=== PATIENT | male | born 1975 | race Caucasian/White ===

== ENCOUNTER 2019-07-06 16:08 | Inpatient (IN) | payer BC, MEDICARE ==
--- NOTE | 2019-07-06 16:31 | ED ---
General Adult HPI - General Chief complaint: Psychiatric Symptoms Stated complaint: pickup order Time Seen by Provider: 07/06/19 16:16 Source: patient Mode of arrival: ambulatory Limitations: no limitations - History of Present Illness Initial comments: Dictation was produced using [employer] dictation software. please excuse any grammatical, word or spelling errors. Chief Complaint: 44-year-old male past medical history of psychiatric disease presents as pickup order. History of Present Illness: Since a 44-year-old male he was brought in by enforcement. Allegedly there was a pickup order from [facility]. Patient has been having delusional thoughts. Patient is a poor historian at this time. According to EMS she's been cooperative. Patient rambles stating that he is related to multiple celebrities. The ROS documented in this emergency department record has been reviewed and confirmed by me. Those systems with pertinent positive or negative responses have been documented in the HPI. All other systems are other negative and/or noncontributory. PHYSICAL EXAM: General Impression: Alert and oriented x3, not in acute distress HEENT: Normocephalic atraumatic, extra-ocular movements intact, pupils equal and reactive to light bilaterally, mucous membranes moist. Cardiovascular: Heart regular rate and rhythm, S1&S2 audible, no murmurs, rubs or gallops Chest: Lungs clear to auscultation bilaterally, no rhonchi, no wheeze, no rales Abdomen: Bowel sounds present, abdomen soft, non-tender, non-distended, no organomegaly Musculoskeletal: Pulses present and equal in all extremities, no peripheral edema Motor: no focal deficits noted Neurological: CN II-XII grossly intact, no focal motor or sensory deficits noted Skin: Intact with no visualized rashes Psych: Tangential speech ED course: 44 yo male presents with symptoms of psychosis. Vital signs upon arrival shows blood pressure 190/114, rest of vital signs were acceptable limits. Patient's well-appearing. Patient is acutely psychotic on physical examination. EPS consult it. Patient value by EPS. He will be admitted to inpatient psychiatry. - Related Data Home Medications Medication Instructions Recorded Confirmed risperiDONE 1 mg PO HS 07/06/19 07/06/19 Allergies Allergy/AdvReac Type Severity Reaction Status Date / Time dicloxacillin Allergy Unknown Verified 07/06/19 18:23 lactase [From Dairy Aid] Allergy Unknown Verified 07/06/19 18:23 oxycodone Allergy Unknown Verified 07/06/19 18:23 Review of Systems ROS Statement: Those systems with pertinent positive or pertinent negative responses have been documented in the HPI. ROS Other: All systems not noted in ROS Statement are negative. Past Medical History Past Medical History: Diabetes Mellitus, Hyperlipidemia, Hypertension, Osteoarthritis (OA), Renal Disease Additional Past Medical History / Comment(s): Patient denies any history of [place] CVA PE DVT asthma History of Any Multi-Drug Resistant Organisms: None Reported Past Surgical History: Back Surgery Additional Past Surgical History / Comment(s): Back surgery x 2, Surgery right foot. Past Anesthesia/Blood Transfusion Reactions: No Reported Reaction Past Psychological History: Anxiety, Depression Smoking Status: Former smoker Past Alcohol Use History: None Reported, Occasional Past Drug Use History: None Reported General Exam Limitations: no limitations Course Vital Signs 07/06/19 16:10 Temperature 99.1 F Pulse Rate 93 Respiratory 18 Rate Blood Pressure 190/114 O2 Sat by Pulse 98 Oximetry Medical Decision Making - Lab Data Lab Results 07/06/19 Range/Units 20:00 Urine Opiates Screen Not Detected (NotDetected) Ur Oxycodone Screen Not Detected (NotDetected) Urine Methadone Screen Not Detected (NotDetected) Ur Propoxyphene Screen Not Detected (NotDetected) Ur Barbiturates Screen Not Detected (NotDetected) U Tricyclic Antidepress Not Detected (NotDetected) Ur Phencyclidine Scrn Not Detected (NotDetected) Ur Amphetamines Screen Not Detected (NotDetected) U Methamphetamines Scrn Not Detected (NotDetected) U Benzodiazepines Scrn Not Detected (NotDetected) Urine Cocaine Screen Not Detected (NotDetected) U Marijuana (THC) Screen Not Detected (NotDetected) Disposition Clinical Impression: Psychosis Disposition: ADMITTED IP TO THIS [facility] Condition: Fair Referrals: None,Stated [Primary Care Provider] - 1-2 days Decision Time: 21:06
[2019-07-06 20:29] LABS: Amphetamine Screen,Urine Not Detected (NotDetected); Barbiturate Screen,Urine Not Detected (NotDetected); Benzodiazepines Screen,Urine Not Detected (NotDetected); Cocaine Screen,Urine Not Detected (NotDetected); Methadone Screen, Urine Not Detected (NotDetected); Opiate Screen,Urine Not Detected (NotDetected); Oxycodone Screen, Urine Not Detected (NotDetected); Phencyclidine Screen,Urine Not Detected (NotDetected); Tricyclic Antidepressant,Urine Not Detected (NotDetected); Urn Cannabinoid Scrn Not Detected (NotDetected)
[2019-07-06] MEDS ORDERED: MAGNESIUM HYDROXIDE 2,400 MG/10 ML CUP PO PRN (21:53)
[2019-07-06] MEDS ORDERED: MAG HYDROX/AL HYDROX/SIMETH 30 ML CUP PO PRN (21:53)
[2019-07-06] MEDS ORDERED: ZIPRASIDONE 20 MG VIAL IM PRN (21:53)
[2019-07-06] MEDS ORDERED: LORazepam 1 MG TAB PO PRN (21:53)
[2019-07-06] MEDS ORDERED: LORazepam 2 MG/ML INJ IM PRN (21:55)
[2019-07-06] MEDS ORDERED: risperiDONE 1 MG TAB PO SCH (22:00)
--- NOTE | 2019-07-07 06:47 | P.PN ---
Progress Note - Text Progress Note Date: 07/07/19 patient refused to wake up for assessment he even refused to have his vital signs taken earlier please call when patient is more cooperative
[2019-07-07 10:22] LABS: Basophils % (A) 0 %; Eosinophils # (A) 0.3 k/uL (0-0.7); Eosinophils % (A) 5 %; HCT 48.2 % (39.0-53.0); Lymphocytes # (A) 1.9 k/uL (1.0-4.8); Lymphocytes % (A) 29 %; MCH 30.1 pg (25.0-35.0); MCHC 33.2 g/dL (31.0-37.0); MCV 90.5 fL (80.0-100.0); Mean Platelet Volume 6.2; Monocytes # (A) 0.5 k/uL (0-1.0); Monocytes % (A) 7 %; Neutrophils # (A) 3.8 k/uL (1.3-7.7); Neutrophils % (A) 57 %; Platelet Count 335 k/uL (150-450); RBC 5.32 m/uL (4.30-5.90); RDW 12.7 % (11.5-15.5); WBC 6.8 k/uL (3.8-10.6)
[2019-07-07 10:30] LABS: ALT 39 U/L (21-72); AST 24 U/L (17-59); African American GFR (CKD) >90 (>60 ml/min/1.73 sqM); Albumin 4.5 g/dL (3.5-5.0); Alkaline Phosphatase 67 U/L (38-126); Anion Gap 9 mmol/L; Blood Urea Nitrogen 15 mg/dL (9-20); Calcium 9.9 mg/dL (8.4-10.2); Carbon Dioxide 28 mmol/L (22-30); Chloride 104 mmol/L (98-107); Cholesterol 236 mg/dL (<200); Glucose 149 mg/dL (74-99); HDL Cholesterol 46 mg/dL (40-60); LDL Cholesterol,Calculated 160 mg/dL (0-99); Non-African American GFR(CKD) >90 (>60 ml/min/1.73 sqM); Potassium 4.6 mmol/L (3.5-5.1); Sodium 141 mmol/L (137-145); Total Bilirubin 0.8 mg/dL (0.2-1.3); Total Protein 7.3 g/dL (6.3-8.2); Triglycerides 151 mg/dL (<150)
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
[2019-07-07] MEDS: OLANZapine 5 MG TAB PO SCH (11:15)
[2019-07-07] MEDS: ACETAMINOPHEN TAB 325 MG TAB PO PRN (11:23)
[2019-07-07 22:45] LABS: Hemoglobin A1C 5.7 % (4.0-6.0)
--- NOTE | 2019-07-08 04:27 | P.MDCNMH ---
History of Present Illness H&P Date: 07/07/19 Chief Complaint: medical management 44-year-old male with no significant past medical history patient was brought into the hospital on a pickup order from [facility] Patient kept rambling with me about Medicare and denying him service. He denies any suicidal ideation. He denies any current physical or medical complaints. Denies any fevers chills chest pain trouble breathing abdominal pain nausea or vomiting Review of Systems Pertinent positives as noted in HPI. All other systems were reviewed and are negative Past Medical History Past Medical History: Diabetes Mellitus, Hyperlipidemia, Hypertension, Osteoarthritis (OA), Renal Disease Additional Past Medical History / Comment(s): Patient denies any history of [place] CVA PE DVT asthma History of Any Multi-Drug Resistant Organisms: None Reported Past Surgical History: Back Surgery Additional Past Surgical History / Comment(s): Back surgery x 2, Surgery right foot. Past Anesthesia/Blood Transfusion Reactions: No Reported Reaction Smoking Status: Current every day smoker Medications and Allergies Home Medications Medication Instructions Recorded Confirmed Type risperiDONE 1 mg PO HS 07/06/19 07/07/19 History Allergies Allergy/AdvReac Type Severity Reaction Status Date / Time dicloxacillin Allergy Unknown Verified 07/07/19 15:12 lactase [From Dairy Aid] Allergy Unknown Verified 07/07/19 15:12 oxycodone Allergy Unknown Verified 07/07/19 15:12 risperidone Allergy Anaphylaxis Verified 07/07/19 15:12 Physical Exam Vitals: Intake and Output 07/07/19 07/07/19 07/08/19 14:59 22:59 06:59 Other: Weight 97.885 kg Constitutional: No acute distress, conversant, pleasant Eyes: Anicteric sclerae, moist conjunctiva, no lid-lag Pupils equal round reactive to light ENMT: NC/AT Oropharynx clear, no erythema, exudates Neck: Supple, FROM, no masses, or JVD No carotid bruits No thyromegaly Lungs: Clear to auscultation Clear to percussion Normal respiratory effort, no accessory muscle use Cardiovascular: Heart regular in rate and rhythm, No murmurs, gallops, or rubs No peripheral edema Abdominal: Soft Nontender, no guarding, rebound or rigidity Abdomen moving with respiration Normoactive bowel sounds No hepatomegaly, No splenomegaly No palpable mass No abdominal wall hernia noted Skin: Normal temperature, tone, texture, turgor No induration No subcutaneous nodules No rash, lesions No ulcers Extremities: No digital cyanosis No clubbing Pedal pulses intact and symmetrical Radial pulses intact and symmetrical No calf tenderness Psychiatric: Alert and oriented to person, place and time flat affect fair judgement Neuro Muscles Strength 5/5 in all 4 extremities Sensation to light touch grossly present throughout Cranial nerves II-XII grossly intact No focal sensory deficits Lymphatics: no palpable cervical or supraclavicular , or inguinal lymph nodes Cranial Nerve Examination - Cranial Nerves Cranial Nerve II- Optic: Intact Cranial Nerve III- Oculomotor: Intact Cranial Nerve IV- Trochlear: Intact Cranial Nerve V- Trigeminal: Intact Cranial Nerve - Abducens: Intact Cranial Nerve VII- Facial: Intact Cranial Nerve VIII- Auditory: Intact Cranial Nerve IX- Glossopharyngeal: Intact Cranial Nerve X- Vagus: Intact Cranial Nerve XI- Accessory: Intact Cranial Nerve XII- Hypoglossal: Intact Results CBC & Chem 7: 07/07/19 08:35 07/07/19 08:35 Labs: Abnormal Lab Results - Last 24 Hours (Table) 07/07/19 Range/Units 08:35 Glucose 149 H (74-99) mg/dL Triglycerides 151 H (<150) mg/dL Cholesterol 236 H (<200) mg/dL LDL Cholesterol, Calc 160 H (0-99) mg/dL Assessment and Plan Assessment: 44-year-old male with no significant past medical history brought into the hospital upon a pickup order due to noncompliance with [facility]. Patient currently denies any medical or physical complaints. Plan: delusional thoughts Schizoaffective disorder Bipolar disorder Management per psych hyperlipidemia Recommending lifestyle modification Outpatient follow-up with PCP Low risk for DVT patient ambulatory Follow-up labs Thank you for allowing us to participate in the care of this patient. We will follow peripherally. Do not hesitate to contact us with questions. Someone can be reached from the [facility] hospitalist group at all hours of the day at [phone].
[2019-07-08] MEDS: OLANZapine 5 MG TAB PO SCH ×3 (09:11→20:06)
--- NOTE | 2019-07-08 09:15 | P.PN ---
Progress Note - Text Interval history: The patient is found in the [facility] he follows me to an interview room. He initially refused to speak with me unless I brought him all of his belongings. After a few attempts he was willing to follow me to an interview room. He states that he wants hydrotherapy immediately. He states he wants a therapeutic riding instructor hired for his disability case. He indicates that he has a felony case against him in [place] regarding a stolen rental car and he has an claims attorney for that case as well. He is aware that his blood pressure readings have been elevated but he states he does not want blood pressure medication he wants no pain medication. He complied with the Zyprexa yesterday we discussed titrating the dose and he will give that consideration. He is very concerned about being "overmedicated". Staff reported he slept 6 hours yesterday. He indicates he has been attending groups. He states he was fraudulently admitted to the hospital. He states that the person who completed the petition should lose their job and is part of the fraud. Mental status exam: The patient is alert he is initially resistant to speaking with me but eventually was agreeable. He has spontaneous ongoing speech. He demonstrates a disorganized thought process including tangential thinking and loose associations. He spontaneously describes paranoid persecutory themes. He feels that people have fraudulently admitted into the hospital he feels framed by the felony charge in [place]. He feels that we are attempting to overmedicate him. He has an irritable affect throughout the session but he is directable. He is reporting no thoughts of harming himself or others. He endorses no auditory hallucinations but he is an impaired historian. He denies having any delusions although he demonstrates paranoid and persecutory thinking. Insight and judgment are poor. He demonstrates no verbal or physical aggressiveness. He demonstrates no involuntary repetitive movements. Plan: The patient is refusing most recommendations. He does not is to have medication prescribed for his blood pressure. He refuses any psychotropic med ication other than Zyprexa. I informed him that I would be titrating the dose to 5 mg twice daily. At this point we are trying to use any antipsychotic that he is willing to take as we continue to wait for the court process. He is encouraged to continue participating in the milieu. Efforts are made to provide reality orientation when possible. Vital signs reviewed. He requires continued psychiatric hospitalization.
[2019-07-09] MEDS: OLANZapine 5 MG TAB PO SCH (08:19)
--- NOTE | 2019-07-09 11:27 | P.PN ---
Progress Note - Text Interval history: The patient is found in the hallway he follows me to an interview room. He met with his court appointed attorney general yesterday and deferred a court hearing. We discussed that that means that he will comply with treatment recommendations. We discussed that I wanted to titrate the Zyprexa further. He became agitated. He threatened to take legal action if we overdosed him. He continues to be quite disorganized in conversation he demonstrates tangential thinking loose associations. He is concerned about his insurance getting disability he makes demands for a single disability payment as well as social work finding him housing. Staff reported that he did sleep last night he has been participating in groups. It seems in a group setting he is more contained but with one-on-one interactions the thought disorganization is quite evident. Mental status exam: The patient is alert he is dressed in the same clothing he refuses to launder his clothing he states he has been showering. Eye contact is appropriate speech is fluent spontaneous he is pressured as noted he demonstrates disorganization of thought. It is difficult to redirect him. He asked questions but provides me no time to answer them. He then provides an interpretation of what my answer would be and it is not objective. Insight and judgment are poor. He is reporting no suicidal or homicidal thoughts. He demonstrates paranoid persecutory thinking. He does get demonstrative with speech and he does appear irritable he is verbally threatening in terms of legal action. He demonstrates no physical aggressiveness. Plan: We will titrate the Zyprexa 5 mg in the morning 10 mg at bedtime. There has been no improvement in his psychosis and thought disorganization at this time. We will monitor him for safety he is encouraged to participate in the milieu. He requires continued psychiatric hospitalization. If he refuses the Zyprexa the evening we will have to pursue a full hearing to obtain a court order.
[2019-07-09] MEDS ORDERED: cloNIDine HCL 0.1 MG TAB PO PRN (18:54)
[2019-07-09] MEDS ORDERED: OLANZapine 10 MG TAB PO SCH (21:00)
[2019-07-10] MEDS ORDERED: OLANZapine 5 MG TAB PO SCH (09:00)
[2019-07-10] MEDS ORDERED: OLANZapine 5 MG TAB PO ONE (10:49)
--- NOTE | 2019-07-10 10:55 | P.PN ---
Progress Note - Text Interval history: The patient is found in the hallway he follows me to an interview room. He indicates his mood is fine. He did sleep through the night. Staff report he continues to make an effort attending groups. Staff also report however was spontaneous speech the patient's thoughts are disorganized. He is noted to continue walking around with a legal pad that is filled with pages of notes and things have been highlighted. During our session he speaks nonstop and continues to demonstrate the same disorganized thought process noted in the last to progress notes. Mental status exam: The patient is alert he is dressed in different clothing he is wearing prescription sunglasses. Eye contact is appropriate speech is fluent and spontaneous he is pressured he continues to demonstrate the same thought disorganization. He demonstrates tangential thinking loose associations at times flight of ideas. Insight and judgment are poor. He demonstrates no verbal or physical aggressiveness but remains animated in speech. He reports no auditory or visual hallucinations he denies any symptoms of psychosis but continues to spontaneously describe paranoid persecutory thinking. His symptoms of psychosis would definitely impede normal psychosocial function outside of the hospital. Plan: The patient will continue on the Zyprexa we will titrate to 10 mg twice daily. He is amenable to this change. Vital signs reviewed. We will monitor him for safety he is encouraged to appropriate participate in the milieu.
[2019-07-10] MEDS: ACETAMINOPHEN TAB 325 MG TAB PO PRN (20:14)
[2019-07-10] MEDS: OLANZapine 10 MG TAB PO SCH (20:15)
[2019-07-11] MEDS: OLANZapine 10 MG TAB PO SCH ×2 (09:28→21:37)
--- NOTE | 2019-07-11 10:26 | P.PN ---
Progress Note - Text Interval history: The patient is found in his room he prefers to talk in his room today. He is seated on his bed he is surrounded by papers he has numerous pages completed front and back. He did allow me to review a few of these pages. In essence they are disorganized journals. At some points he is documenting what he is doing at the moment and then there are random topics written about. He states that he has a book he is working on the has 432 pages. He continues to worry about his insurance he asks when he will be released. He continues to have poor insight as to why he was admitted. He indicates he is complying with the Zyprexa he is reporting no side effects from it. Mental status exam: The patient is an overweight male he is dressed in his own clothing he is wearing his prescription sunglasses. Eye contact is intermittent speech is fluent and spontaneous nonpressured. He reports no suicidal or homicidal ideation intent or plan he reports no auditory or visual hallucinations or any specific delusions he does however continue to demonstrate paranoid and persecutory thinking. Thoughts are disorganized he demonstrates tangential thinking loose associations. Insight and judgment are poor. He demonstrates no verbal or physical aggressiveness he demonstrates no involuntary repetitive movements. Plan: The patient will continue on his current medication we have just recently titrated the Zyprexa. We will consider adding another mood stabilizer. Vital signs reviewed. He is encouraged to participate in the milieu. He requires continued psychiatric hospitalization.
[2019-07-11] MEDS: ACETAMINOPHEN TAB 325 MG TAB PO PRN (19:17)
[2019-07-12] MEDS: OLANZapine 10 MG TAB PO SCH ×2 (08:45→20:55)
--- NOTE | 2019-07-12 13:50 | P.PN ---
Progress Note - Text Interval history: The patient is found in the hallway he follows me to an interview room. He indicates his mood is frustrated he would like to be discharged. He did sleep last night he has been eating he's been attending some groups. We discussed that the Zyprexa does not seem to be organizing his thought process sufficiently. He becomes agitated he refuses to increase the medicine or let us augment with any other medicine. He threatens to jose he is going to get a coffee farmer etc. Mental status exam: The patient is a 44-year-old male appearing his stated age. He is dressed in his own clothing he is wearing his prescription sunglasses. Before speaking with me he went down to his room to grab his legal pad filled with notes. He reports his mood is fine he has poor insight and judgment he feels he never should've been hospitalized. He continues to describe paranoid and persecutory thinking. Thought process continues to be disorganized. He did require some verbal redirection as he was beginning to escalate. Fortunately he was able to follow that redirection. Plan: The patient has demonstrated little improvement so far we will consider titrating the Zyprexa further I did discuss wanting to add Depakote to his current regimen. He adamantly refuses either option. We will discuss this further and we may need to demand a court hearing if further medication changes are needed. Vital signs reviewed.
[2019-07-12] MEDS: ACETAMINOPHEN TAB 325 MG TAB PO PRN (17:24)
[2019-07-13] MEDS: OLANZapine 10 MG TAB PO SCH ×2 (08:39→20:11)
--- NOTE | 2019-07-13 11:25 | P.PN ---
Progress Note - Text Interval history: The patient is found in group he follows me to an interview room. Staff report that superficially he has been functioning on the unit in the sense that he has been showering, eating appropriately, and attending some groups. They indicate that he has not been verbal in groups. The patient continues to carry around his folder of written pages. He begins the session making demands and describing a variety of disorganized thoughts. He continues to convey paranoid persecutory thoughts. He accuses me of going to wherever his belongings are in reading through his personal papers. He accuses me of trying to collude with physicians in [place] to overmedicate him. He absolutely refuses to entertain the option of us titrating the Zyprexa further or adding Depakote as an augmentation strategy. Mental status exam: The patient is a shorter statured bald overweight male appearing his stated age. He is wearing prescription sunglasses. Eye contact is staring in nature. He demonstrates an irritable affect he threatens legal action. He regresses to making derogatory comments towards the end of the session. Out of anger he began hitting the table when speaking. He demonstrates no insight into his thought disorganization he demonstrates no insight into his psychosis. Judgment is subsequently impaired. He reports no thoughts of wanting to harm himself or others. He demonstrates no involuntary repetitive movements. Plan: We will continue the Zyprexa as written he is agreeable to that medication at that dose only he is not willing to have the dose titrated or any other medicine being added. He is on a deferral agreement. I attempted to discuss that he is not adhering to that agreement and we will need to request a full hearing. Vital signs reviewed. We will continue to monitor him for safety. He requires continued psychiatric hospitalization due to the acute nature of his symptoms.
[2019-07-13] MEDS: ACETAMINOPHEN TAB 325 MG TAB PO PRN (15:57)
[2019-07-14] MEDS: OLANZapine 10 MG TAB PO SCH ×2 (08:42→20:16)
--- NOTE | 2019-07-14 09:07 | P.PN ---
Progress Note - Text Interval history: The patient is found in the hallway. We spoke in the library this morning. He states that he contact his clinical molecular geneticist. He requested she come to the unit yesterday and she did not. He states he may press charges against her. He threatens to take legal action against me. He states that when he signed a deferral he should've been released immediately. When I try to explain the deferral again he becomes agitated. He refuses to discuss any medication changes. He continues to state that I'm trying to overmedicate him. Mental status exam: The patient is alert he is wearing his prescription sunglasses. He has ongoing speech he is pressured and more difficult to redirect. He has disorganization of thought. He spontaneously describes persecutory and paranoid thinking. Insight and judgment are impaired. He demonstrates no physical aggressiveness but verbally is agitated during the session. He reports no thoughts of harming himself or others. He is demonstrating no involuntary repetitive movements. The session was terminated early due to his agitation. Plan: The patient will continue on the medication as written he refuses any changes. We have requested a demand for hearing that is scheduled for tomorrow morning. Vital signs reviewed. He requires continued psychiatric hospitalization due to the acute nature. His symptoms.
[2019-07-14] MEDS: ACETAMINOPHEN TAB 325 MG TAB PO PRN (15:33)
[2019-07-15] MEDS: OLANZapine 10 MG TAB PO SCH ×2 (09:00→20:36)
--- NOTE | 2019-07-15 09:56 | P.PN ---
Progress Note - Text Interval history: The patient is found in the hallway he follows me to the library to speak. He continues to start the session by discussing his concerns regarding Medicare his hopes to be on medical disability. He reports he contacted his teacher selection specialist and she did not help him yesterday. He asked that he is able to have his own love on the mental health unit he wants a razor and makes other demands. An attempt was made again to discuss his psychotropic medication. He did have a fact sheet regarding Depakote. He made conflicting statements about the medication but ultimately refuses to use it in conjunction with Zyprexa. He refuses to comply with any increase in the Zyprexa. Efforts were made to address concerns he verbalize regarding the medications but he was not receptive. Mental status exam: The patient is alert he is dressed in his own clothing he is wearing his sunglasses, he has his folder filled with pages of written information. He continues to demonstrate a disorganized thought process. He demonstrates tangential thinking loose associations at times flight of ideas. He continues to spontaneously make paranoid and persecutory statements. He accuses previous physicians at this hospital over medicating him. Implies that it is my motive to overmedicate him. He misconstrues information provided to him. He is intrusive in conversation and has to be asked to stop talking in order to complete a statement. He demonstrates no verbal or physical aggressiveness. He demonstrates no involuntary repetitive movements. Insight and judgment are poor. Plan: The patient refuses any medication addition or titration. We have filed a demand for hearing and this is not scheduled until July 22. I will continue to try to help him understand the need for further medication change. He is encouraged to participate fully in groups. He requires continued psychiatric hospitalization. I fully expect that he would be weekly readmitted if he was discharged to a lesser level of care at this time. His thought disorganization and psychosis would significantly adversely affect his psychosocial function if he were currently treated as an outpatient. Vital signs reviewed.
[2019-07-15] MEDS: ACETAMINOPHEN TAB 325 MG TAB PO PRN (13:46)
[2019-07-16] MEDS: OLANZapine 10 MG TAB PO SCH ×2 (08:46→20:13)
--- NOTE | 2019-07-16 10:03 | P.PN ---
Progress Note - Text Interval history: The patient is found in group he follows me to an interview room. The patient shows me a sheet of paper that he is filled front and back of all medications that he has taken before. Some of which were psychotropic medications that we have previously discussed. He states that I am trying to overmedicate him. He states that there is no value in adding Depakote to Zyprexa because of the same medicine. He states that both the same as Cymbalta. An attempt was made to provide some education regarding the medications but he was not receptive. We discussed that his court date isn't until the and we should try to make a change in his medicine to improve his condition and make use of the time. He states he would consider starting the Depakote but not at the typical starting dose. He agreed to consider starting at 250 mg. The patient was agitated throughout the session. We discontinued the session as he started to make derogatory statements directed towards me. Mental status exam: The patient is alert he is dressed in the same clothing he is wearing his prescription sunglasses. He shuffles through several pages that he keeps in a folder. He is intrusive in conversation he frequently interrupts me when I'm speaking. He does not allow me to offer information regarding medications. Thought process remains disorganized he continues to convey a paranoid and persecutory thought content. Insight and judgment are poor. He does get verbally agitated he started to make derogatory statements. The session was discontinued. He demonstrated no physical aggressiveness. He reports no suicidal or homicidal thoughts. Plan: The patient will continue on the Zyprexa as written. He refuses any in creased dose. He was informed that I would be prescribing Depakote ER 250 mg at bedtime we also discussed of this dose will be too low to be considered therapeutic and it will have to be titrated should he continue with that medication. He was informed that he is a court date on the . We will monitor him for safety and encourage participation in the milieu. He remains acutely symptomatic. Vital signs reviewed.
[2019-07-16] MEDS: ACETAMINOPHEN TAB 325 MG TAB PO PRN (15:07)
[2019-07-16] MEDS ORDERED: DIVALPROEX ER 250 MG TAB.ER.24H PO SCH (21:00)
[2019-07-17] MEDS: OLANZapine 10 MG TAB PO SCH ×2 (08:36→20:58)
--- NOTE | 2019-07-17 10:12 | P.PN ---
Progress Note - Text interval history: The patient is found in group he follows me to an interview room. He states he's frustrated that he can't shave and he wants to carry around his own cross pen instead of using our pens. We reviewed his psychotropic medication. He did comply with the Depakote ER last evening. He admits there is no side effects or issues so far. We discussed the importance of titrating that medication further to get it in the therapeutic range. He remains reluctant and apprehensive. He is agreeable to having the increase it to 500 mg at bedtime. We discussed a target goal of 750 or thousand milligrams. He indicates he slept last night. He has been eating meals. He has been attending groups. Mental status exam: The patient is alert he is dressed in his own clothing hygiene grooming fair. He continues to wear his prescription sunglasses. Speech is fluent spontaneous he is verbose. He continues to demonstrate diso rganization of thought. Quickly begins talking about hydrotherapy and needing a prescription to go into the pool, he discusses concerns about his insurance and states he's going to discontinue Medicaid. He wants his disability benefits started. He continues to state that this hospital overmedicated him 3 years ago. He states I'm trying to prescribe medicines to him that do the same thing. He was calm her today and was mildly more receptive in terms of me providing explanations of his medications. Insight and judgment are still impaired. He reports no suicidal or homicidal thoughts. He can be perseverative. He demonstrated no verbal or physical aggressiveness. He demonstrated no involuntary repetitive movements. Plan: The patient will continue on the Zyprexa as written, we will titrate the Depakote to 500 mg at bedtime. He was advised that we would need to titrate this further. He is concerned about the size of the tablets so we are requesting pharmacy give him the 250 mg tablets to equal 500 mg. We discussed using the capsule version of the medication and a twice daily dosing but he prefers to continue the extended release just at bedtime. We will monitor him for safety. He is encouraged to continue participating in the milieu. Vital signs reviewed. He is scheduled to have a court hearing on the .
[2019-07-17] MEDS: ACETAMINOPHEN TAB 325 MG TAB PO PRN (15:32)
[2019-07-17] MEDS: DIVALPROEX ER 500 MG TAB.ER.24H PO SCH (20:58)
[2019-07-18] MEDS: OLANZapine 10 MG TAB PO SCH ×2 (08:26→20:39)
--- NOTE | 2019-07-18 13:48 | P.PN ---
Progress Note - Text Progress Note Date: 07/18/19 Interval history: Patient was seen wandering the hallways with sunglasses on and was agreeable to speak to securities underwriter in the office. Patient claims that he is doing well today and claims that he feels the medications are helping him. He states that he is tending to participate on the [facility] and cortical groups as best as he can. He claims that he does not understand why he needs to go back to court and why the medications need to be increased more. Patient has a poor understanding of his treatment however is agreeable to continue with current regimen. He stated that he misses his therapy dog and wants to go home. Patient states that he slept well last night and was focused on discharge during the interview. He states that he is eating well and has fair energy. At this time patient denies any suicidal or homicidal ideations intent or plan. Denies any Auditory or visual hallucinations. Patient denies any side effects from the medications and has been compliant with meds. Mental status exam: General Appearance: Patient appears to be stated age is alert, directable and attempts to cooperate. Fair hygiene and grooming. Patient has sunglasses on. Behavior: No agitated behavior. Patient is calm and directable irritable at times. Speech: Patient's speech is fluent and nonpressured. Mood/Affect: Mood is improving, affect is congruent and constricted. Suicidality/Homicidality: Patient denies having any suicidal or homicidal ideation intent or plan. Perceptions: Patient denies any auditory or visual hallucinations. Though content/process: There is no evidence of any delusional thought content and thought process is linear and goal-directed. Memory and concentration: AOX3, grossly intact for the purposes of this session Judgment and insight: Poor Assessment/Plan: Continue with current diagnosis. Patient continues to meet criteria for inpatient psychiatric admission for symptom stabilization and safety.Patient will be maintained on current psychotropic medication regimen. Monitor for medication compliance and for any psychotropic medication side effects. Will continue to monitor ongoing response to treatment. Patient will be due for probate court next week.
[2019-07-18] MEDS: ACETAMINOPHEN TAB 325 MG TAB PO PRN (15:02)
[2019-07-18] MEDS: DIVALPROEX ER 500 MG TAB.ER.24H PO SCH (20:39)
[2019-07-19] MEDS: OLANZapine 10 MG TAB PO SCH ×2 (08:40→20:19)
--- NOTE | 2019-07-19 11:34 | P.PN ---
Progress Note - Text Progress Note Date: 07/19/19 Interval history: Patient was seen wandering the hallways with sunglasses on and was agreeable to speak to insurance underwriter sales in the office. patient claims that he is taking his medications regularly and claiming that it is a increasing his appetite and finds himself hungry in the morning. He spoke about not getting the proper food that he wants in the hospital and states that "they're messing up my order to much". He claims that his mood has been gradually improving and offers no overnight complaints. He states that he slept well last night. He continues to talk about missing his dog and wanting to leave the hospital. patient spoke about going to groups and participating well. he admits to having fair energy. At this time patient denies any suicidal or homicidal ideations intent or plan. Denies any Auditory or visual hallucinations. Patient denies any side effects from the medications and has been compliant with meds. Mental status exam: General Appearance: Patient appears to be stated age is alert, directable and attempts to cooperate. Fair hygiene and grooming. Patient has sunglasses on. Behavior: No agitated behavior. Patient is calm and directable. less irritable today. Speech: Patient's speech is fluent and nonpressured. Mood/Affect: Mood is improving, affect is congruent and constricted. Suicidality/Homicidality: Patient denies having any suicidal or homicidal ideation intent or plan. Perceptions: Patient denies any auditory or visual hallucinations. Though content/process: There is no evidence of any delusional thought content and thought process is linear and goal-directed. Memory and concentration: AOX3, grossly intact for the purposes of this session Judgment and insight: Poor, mildly improving. Assessment/Plan: Continue with current diagnosis. Patient continues to meet criteria for inpatient psychiatric admission for symptom stabilization and saf ety.Patient will be maintained on current psychotropic medication regimen. Monitor for medication compliance and for any psychotropic medication side effects. Will continue to monitor ongoing response to treatment. Patient will be due for probate court next week.
[2019-07-19] MEDS: DIVALPROEX ER 500 MG TAB.ER.24H PO SCH (20:19)
[2019-07-20] MEDS: ACETAMINOPHEN TAB 325 MG TAB PO PRN (08:33)
[2019-07-20] MEDS: OLANZapine 10 MG TAB PO SCH ×2 (08:33→20:12)
--- NOTE | 2019-07-20 11:04 | P.PN ---
Progress Note - Text interval history: The patient is found in the [facility] he follows me to an interview room. He indicates his mood is okay. Spontaneously he states that a [facility] doesn't find him somewhere to live he will press charges. He continues to speak of his concerns regarding his insurance. He states he is unsure what his status is with Medicare. Staff report that he has been doing better with attending groups. He has been more calm in terms of behavior. He has been complying with the Zyprexa and now the Depakote. We discussed titrating the Depakote dose further so that it is therapeutic and he is agreeable today. Mental status exam: The patient's dressed in the same clothing hygiene is adequate he is growing a duarte. He is wearing his prescription sunglasses. Speech is fluent spontaneous nonpressured. He demonstrates no pressured speech today. He does still have some disorganization of thought he does continue to describe persecutory feelings. He is able to answer several questions in a linear fashion. He demonstrates no irritability or agitation during this encounter. Insight and judgment still limited but slowly improving. He reports no suicidal or homicidal ideation intent or plan. He demonstrates no involuntary repetitive movements. He maintains a constricted affect. Plan: The patient will continue on his current psychotropic medications we will titrate the Depakote ER to 750 mg at bedtime. We will monitor him for safety we will encourage his full participation in the milieu. We are awaiting his court date which is Saturday. We will continue to evaluate for any improvement of his psychotic symptoms and organization of his thought.
[2019-07-20] MEDS: DIVALPROEX ER 250 MG TAB.ER.24H PO SCH (20:12)
[2019-07-21] MEDS: OLANZapine 10 MG TAB PO SCH ×2 (08:35→20:10)
[2019-07-21] MEDS: ACETAMINOPHEN TAB 325 MG TAB PO PRN ×2 (09:02→19:05)
--- NOTE | 2019-07-21 10:20 | P.PN ---
Progress Note - Text interval history: The patient is found in group he follows me to an interview room. He indicates his mood is fine. He begins asking when he will be discharged. We discussed that we are evaluating him daily to see if he is clinically stabilizing. He discussed that we need to get the Depakote time before we can draw a level to see if it is therapeutic. He indicates he is sleeping at night staff report he slept 7 hours appetite is stable. We reviewed his psychotropic medication. He states that he is upset that he still in the [facility]. He indicates that if his therapy dog dies while he is in here he will press charges. He plans to press charges against myself [facility] and individuals at [facility]. Mental status exam: The patient is alert he is dressed in his own clothing he continues to wear sunglasses. He has his folder stuffed full of papers. He takes notes during our session. He will ask a question and then not allow me time to answer it and will begin asking another question. Affect is more irritable today in discussing the court process. He demonstrates no physical aggressiveness. He continues to lack insight into his presenting symptoms judgment is subsequently impaired. He has been compliant with medication and attending groups however in that he knows that will help facilitate a discharge. He reports no suicidal or homicidal ideation intent or plan. He is oriented to person place and date. Plan: The patient will continue on his current psychotropic medication. We will allow the Depakote time to reach steady state we will draw a blood level in several days. He has court scheduled for tomorrow morning. We will monitor him for safety and encourage full participation in the milieu. He requires continued evaluation and treatment here on the mental health unit. He would likely decompensate if discharged to a lesser level of care at this time. Vital signs reviewed.
[2019-07-21] MEDS: DIVALPROEX ER 250 MG TAB.ER.24H PO SCH (20:10)
[2019-07-22] MEDS: OLANZapine 10 MG TAB PO SCH ×2 (08:02→20:31)
--- NOTE | 2019-07-22 09:09 | P.PN ---
Progress Note - Text Interval history: The patient is found in the [facility] he follows me to an interview room. He indicates his mood is fine. He sleeping at night. He states he is tired of the cheap sick food. Once again he asks me about when we will draw a Depakote level when he could possibly be discharged. Each day he writes down the same answers. He spontaneously states "just to let you know I broke all of the workplace violence rules you have listed" he then laughs as he is exiting the room. He continues to make an effort to attend groups. Staff report no behavioral disturbances. Mental status exam: The patient is alert he is dressed in the same clothing a short sleeve shirt and shorts he is wearing his prescription sunglasses. He is wearing socks with no shoes. He continues to focus on his folder of papers. He again takes each day writing down the same information is the day before. He remains focused on having no Medicare or Medicaid cards. He is continuing to accuse us of overmedicating him. He however reports no feelings of fatigue or sedation. Overtly he does not appear to be overmedicated. He accuses us from keeping him from his therapy dog. Thought process remains disorganized. Obviously he describes paranoid persecutory thoughts throughout our conversation. He has little insight into his symptoms. He remains oriented to person place and date. Affect demonstrated some exaggerated laughter at times. Plan: The patient will continue on his current psychotropic medications. We are giving the Depakote time to reach steady state. We will plan to draw a Depakote level the next 2 days. He does have a court hearing scheduled for this morning. We will continue to monitor him for safety and encourage participation in the milieu. Vital signs reviewed.
[2019-07-22] MEDS: DIVALPROEX ER 250 MG TAB.ER.24H PO SCH (20:31)
--- NOTE | 2019-07-23 09:11 | P.PN ---
Progress Note - Text interval history: The patient is found at the medication window he follows me to an interview room. He indicates his mood is fine. He feels he is not getting enough food to eat although he is able to complete his menu and make selections. Sleep is stable staff report he slept 7 hours. He has been attending groups. We discussed trying his Depakote level tomorrow. He is interested in being discharged. He has no questions or concerns at this time regarding his psychotropic medications. He did attend his court hearing and stipulated to a treatment order. Mental status exam: The patient is alert he is dressed in the same clothing hygiene is adequate. He is growing a duarte. He is wearing his prescription sunglasses. Eye contact is appropriate speech is fluent spontaneous nonpressured. His affect is much less irritable today in fact he demonstrates appropriate smiling twice. He is focused on housing upon discharge. He remains focused on getting therapy dogs. He reports no suicidal or homicidal ideation intent or plan. He is endorsing no auditory or visual hallucinations. He does not spontaneously discuss any paranoid or persecutory thinking during this session although it likely persists. Insight and judgment slowly improving. He is oriented to person place and date. He continues to take notes on his legal pad throughout the session. Plan: The patient will continue his current psychotropic medication, we will draw a Depakote level and liver enzymes tomorrow. In terms of discharge planning we are looking for his thought process to further organize we are monitoring for symptoms of psychosis. Vital signs reviewed. We will continue monitoring him for safety and encouraging participation in the milieu.
[2019-07-23] MEDS: OLANZapine 10 MG TAB PO SCH ×2 (09:16→21:06)
[2019-07-23] MEDS: DIVALPROEX ER 250 MG TAB.ER.24H PO SCH (21:06)
[2019-07-24] MEDS: OLANZapine 10 MG TAB PO SCH ×2 (09:02→20:37)
[2019-07-24 10:54] LABS: Valproic Acid (Depakene) 38.9 ug/mL
--- NOTE | 2019-07-24 11:59 | P.PN ---
Progress Note - Text Progress Note Date: 07/24/19 Interval history: patient was seen for cross coverage for Dr. Webb. Patient was seen wandering the hallways with sunglasses on and was directable and agreeable to speak to real estate underwriter in the office. Patient claims he is going to groups however claims that he does not want to be involved with other people. He went off on a tangent about other people's problems and was fairly disorganized. He states that he spoke with his social worker school from [employer] [employer] [facility] about possible housing and when asked about discharge patient states that "I can leave whenever I want". He states that his mood has been doing fairly well and denies any depression at this time. He states that his anxiety is been improving. he claims that he has been sleeping fairly well at night. At this time patient denies any suicidal or homicidal ideations intent or plan. Denies any Auditory or visual hallucinations. Patient denies any side effects from the medications and has been compliant with meds. Mental status exam: General Appearance: Patient appears to be stated age is alert, directable and attempts to cooperate. has on sunglasses and marginal hygiene. Behavior: No agitated behavior. Patient is calm and directable Speech: Patient's speech is fluent and nonpressured. disorganized speech. Mood/Affect: Mood is improving mildly, affect is congruent and constricted. Suicidality/Homicidality: Patient denies having any suicidal or homicidal ideation intent or plan. Perceptions: Patient denies any auditory or visual hallucinations. Though content/process: patient has some disorganized thoughts however does not endorse any paranoia. tangential/illogical at times. Memory and concentration: AOX3, grossly intact for the purposes of this session Judgment and insight: improving mildly. Assessment/Plan: Continue with current diagnosis. Patient continues to meet criteria for inpatient psychiatric admission for symptom stabilization and safety. we will increase Depakote to 1000 mg daily at bedtime for mood stabilization. Depakote level came back today at 38.9 and LFTs are within normal limits. We'll consider increasing Zyprexa over the weekend if necessary for psychosis. Patient has been meeting with his [facility] social worker school for possible placement. Monitor for medication compliance and for any psychotropic medi cation side effects. Will continue to monitor ongoing response to treatment. as per Dr. Strong recommendations, patient should be improving in terms of his thought process and content prior to discharge. Likely discharge early next week.
[2019-07-24] MEDS: ACETAMINOPHEN TAB 325 MG TAB PO PRN (16:54)
[2019-07-24] MEDS: DIVALPROEX ER 500 MG TAB.ER.24H PO SCH (20:37)
[2019-07-25] MEDS: OLANZapine 10 MG TAB PO SCH ×2 (08:36→20:08)
--- NOTE | 2019-07-25 15:04 | P.PN ---
Progress Note - Text Progress Note Date: 07/25/19 interval history: Patient seen in [facility] today. He relates that he is sleeping well he does not voice any adverse psychotropic medication side effects. He makes reference to his medication being increased last night and he was not aware of it, we did discuss his medication and his Depakote level. He makes reference to concerns for his dog. Mental status exam: He is alert and cooperative with the interview. He seems to describe that his mood is doing well. He makes reference to his dog being ill and makes reference that his other providers better run if his dog doesn't do well. After this statement he clarifies that he does not have thoughts of harm to them or others.he does not show any significant agitation. He does have some thought disorganization at times. He denies any hallucinations. Plan: Patient will be maintained on current psychotropic medication regimen. Depakote ER has been titrated. We'll check to see if another Depakote level has been ordered. Continue to monitor for any medication side effects and monitor his ongoing response to treatment.
[2019-07-25] MEDS: DIVALPROEX ER 500 MG TAB.ER.24H PO SCH (20:08)
[2019-07-25] MEDS: ACETAMINOPHEN TAB 325 MG TAB PO PRN (20:43)
[2019-07-26] MEDS: OLANZapine 10 MG TAB PO SCH ×2 (08:24→20:01)
[2019-07-26] MEDS: ACETAMINOPHEN TAB 325 MG TAB PO PRN (18:48)
--- NOTE | 2019-07-26 18:59 | P.PN ---
Progress Note - Text Progress Note Date: 07/26/19 interval history: Patient is seen in cross coverage again today. He does feel as though he is on the right track. He is mood he describes as doing pretty good. He seems to be eating enough. He seems to be tolerating the psychotropic medications okay. Mental status exam: He is alert and cooperative with the interview. His speech is fluent, not rapid or pressured. Thought processes overall are organized. He describes his mood is doing pretty good. He denies any thoughts of harm to self or others. He has not verbalize any hallucinations, he does not show any agitation. Plan: Patient will be maintained on current psychotropic medications. We will check a Depakote level tomorrow. Continue to monitor for any medication side affects and monitor his ongoing response to treatment.
[2019-07-26] MEDS: DIVALPROEX ER 500 MG TAB.ER.24H PO SCH (20:01)
[2019-07-27 07:18] VITALS: RESP 16
[2019-07-27] MEDS: OLANZapine 10 MG TAB PO SCH ×2 (07:59→20:41)
[2019-07-27 13:48] VITALS: BMI 35.5
[2019-07-27] MEDS: DIVALPROEX ER 250 MG TAB.ER.24H PO SCH ×2 (14:12→20:41)
--- NOTE | 2019-07-27 14:21 | P.PN ---
Progress Note - Text Progress Note Date: 07/27/19 Chief complaint: "I want to go home " Subjective: The patient has been seen today as follow-up, chart reviewed, case discussed with the treatment team. Patient slept about 7 hours last night. Patient has been going to some groups and other unit activities. Patient reports fair appetite. Patient was very restricted talking about his symptoms, and he was superficial. He denies feeling hopeless, suicidal, or homicidal. He denies any auditory or visual hallucinations but he was very guarded and to some degree paranoid. Discussed medications and Depakote level which was indicating that Depakote could be increased and patient agreed to increase the Depakote dose to 1500 mg daily. Also, patient agreed to repeat Depakote level after 3 days. The patient is compliant with his medications and denies any adverse reactions. Objective: Vitals has been reviewed. Mental status examination; Mental status examination; Appearance: The patient appears stated age, adequately groomed and dressed, no specific features. Gait/posture: Normal gait, Normal arm swinging: No abnormal movements. Attitude and behavior: Not fully engaged, not fully cooperative, interrupted eye contact. Motor activity: Normal psychomotor activity Speech: Normal rate, tone. Mood: Anxious Affect: Restricted to flat Thought form: Very low rate, scarce. Thought content: Non-delusional, denies suicidal thoughts, denies homicidal thoughts, denies intentions or plans. Perception: Denies any auditory or visual hallucinations Attention: No impairment. Orientation: Patient patient was fully oriented to time place person and situation. Insight: Patient has fair insight about his psychiatric disorder. Judgment: Patient has fair judgment about his psychiatric treatment. Assessment: Schizoaffective disorder bipolar type Plan: Continue inpatient level of care due to need for further stabilization on me dications Precautions: Continue 15 minutes check for safety. Consider medical consultation if any acute medical issues arise. Provide the patient individual, group therapy, substance use disorder counseling to give better insight and learn coping skills. Medications: Depakote ER and increase the dose to 250 mg in the morning and 1250 mg at bedtime for mood stabilization. Zyprexa 10 mg twice daily for psychotic symptoms and mood stabilization. Labs: Repeat valproic acid level on morning. Discharge patient to OUTPATIENT services upon a stabilization Prognosis: Based on chart review during this hospital stay, the patient is improving. Expected LOS: 3-5 days
[2019-07-28] MEDS: OLANZapine 10 MG TAB PO SCH ×2 (08:40→21:30)
[2019-07-28] MEDS: DIVALPROEX ER 250 MG TAB.ER.24H PO SCH ×2 (08:40→21:30)
--- NOTE | 2019-07-28 14:26 | P.PN ---
Progress Note - Text Progress Note Date: 07/28/19 Chief complaint: "I feel good today " Subjective: The patient has been seen today as follow-up, chart reviewed, case discussed with the treatment team. Patient slept about 8 hours last night. Patient has been going to groups and other unit activities. Patient reports good appetite. Patient tolerated increasing Depakote dose to 1500 mg daily with no SEs reported. He continued to report feeling stable emotionally and denies feeling hopeless, suicidal, or homicidal. No report of auditory or visual hallucinations and denies any paranoid ideation. The patient presented with rational speech, organized thoughts and appropriate behavior. The patient is compliant with his medications and denies any adverse reactions. No report of manic symptoms Objective: Vitals has been reviewed. Mental status examination; Mental status examination; Appearance: The patient appears stated age, adequately groomed and dressed, no specific features. Gait/posture: Normal gait, Normal arm swinging: No abnormal movements. Attitude and behavior: Not fully engaged, not fully cooperative, interrupted eye contact. Motor activity: Normal psychomotor activity Speech: Normal rate, tone. Mood: Anxious Affect: Restricted Thought form: Linear, goal-directed. Thought content: Non-delusional, denies suicidal thoughts, denies homicidal thoughts, denies intentions or plans. Perception: Denies any auditory or visual hallucinations Attention: No impairment. Orientation: Patient is fully oriented to time place person and situation. Insight: Patient has fair insight about his psychiatric disorder. Judgment: Patient has fair judgment about his psychiatric treatment. Assessment: Schizoaffective disorder bipolar type Plan: Continue inpatient level of care due to need for further stabilization on medications Precautions: Continue 15 minutes check for safety. Consider medical consultation if any acute medical issues arise. Provide the patient individual, group therapy, substance use disorder counseling to give better insight and learn coping skills. Medications: Depakote ER 250 mg in the morning and 1250 mg at bedtime for mood stabilization. Zyprexa 10 mg twice daily for psychotic symptoms and mood stabilization. Labs: Repeat valproic acid level on morning. Discharge patient to OUTPATIENT services upon a stabilization Prognosis: Based on chart review during this hospital stay, the patient is improving. Expected LOS: 2-4 days
[2019-07-29] MEDS: OLANZapine 10 MG TAB PO SCH ×2 (08:46→20:19)
[2019-07-29] MEDS: DIVALPROEX ER 250 MG TAB.ER.24H PO SCH ×2 (08:46→20:19)
--- NOTE | 2019-07-29 13:14 | P.PN ---
Progress Note - Text Progress Note Date: 07/29/19 Chief complaint: "I'm fine " Subjective: The patient has been seen today as follow-up, chart reviewed, case discussed with the treatment team. Patient reports good sleep last night and he denies any appetite problems. Patient has been going to groups and other unit activities. Patient reports continued to feel stable emotionally and denies feeling hopeless, suicidal, or homicidal. Patient denies auditory or visual hallucinations and denies any paranoid ideation, and no delusions could be elicited. The patient presented with rational speech, organized thoughts and appropriate behavior. The patient is compliant with his medications and denies any adverse reactions. No report of manic symptoms Objective: Vitals has been reviewed. Mental status examination; Appearance: The patient appears stated age, adequately groomed and dressed, no specific features. Gait/posture: Normal gait, Normal arm swinging: No abnormal movements. Attitude and behavior: Not fully engaged, not fully cooperative, interrupted eye contact. Motor activity: Normal psychomotor activity Speech: Normal rate, tone. Mood: "Fine" Affect: Restricted Thought form: Linear, goal-directed. Thought content: Non-delusional, denies suicidal thoughts, denies homicidal thoughts, denies intentions or plans. Perception: Denies any auditory or visual hallucinations Attention: No impairment. Orientation: Patient is fully oriented to time place person and situation. Insight: Patient has fair insight about his psychiatric disorder. Judgment: Patient has fair judgment about his psychiatric treatment. Assessment: Schizo-affective disorder bipolar type Plan: Continue inpatient level of care due to need for further stabilization on medications Precautions: Continue 15 minutes check for safety. Consider medical consultation if any acute medical issues arise. Provide the patient individual, group therapy, substance use disorder counseling to give better insight and learn coping skills. Medications: Depakote ER 250 mg in the morning and 1250 mg at bedtime for mood stabilization. Zyprexa 10 mg twice daily for psychotic symptoms and mood stabilization. Labs: Repeat valproic acid level tomorrow. Discharge patient to OUTPATIENT services upon a stabilization Expected LOS: 1-2 days
[2019-07-29 16:59] VITALS: BP 136/78; PULSE 89; TEMP 97.5
[2019-07-30] MEDS: OLANZapine 10 MG TAB PO SCH (08:48)
[2019-07-30] MEDS: DIVALPROEX ER 250 MG TAB.ER.24H PO SCH (08:48)
--- NOTE | 2019-07-30 12:09 | P.DS ---
Providers Date of admission: 07/06/19 21:20 Expected date of discharge: 07/30/19 Attending physician: Los Webb Consults: 07/06/19 21:53 Consult Physician Routine Consulting Provider: Blossom Physician Consult Reason/Comments: H&P and medical and hypertension Do you want consulting provider notified?: Yes Primary care physician: Stated None Hospital Course: Brief HPI: As per the HPI from initial psychiatric evaluation during this hospital stay: " This patient is a 44-year-old male who was admitted to the mental health unit for acute symptoms of psychosis. HPI: Patient presents with a petition completed by a [facility] mental health worker stating "Reza presents with delusions that he has connections to celebrities, is disorganized in thought, unable to make decisions such as housing, obtaining benefits and has verbally threatened to harm others. Additional [facility] mental [facility] social workers have witnessed Reza unable to stay focused, tangential speech and threatened to harm others, they will all be , I'm not afraid to kill myself." It appears the patient was seen just yesterday [facility]. He had been recently discharged from a psychiatric hospital in [place] after a 7 day hospitalization. He was diagnosed with delusional disorder at [facility] and sent to the hospital for further evaluation and treatment. The patient's is somewhat agitated he states that he was admitted here wrongly. He has no intentions of staying here voluntarily. He indicates that all the medicines he is using the past have been bad. He states that he might be willing to comply with Zyprexa area he is difficult to follow in conversation due to tangential thinking loose associations. He describes paranoid and persecutory thoughts regarding his insurance benefits his disability benefits. Numerous times during the session he had to be redirected to answer questions. He struggles with answering quest ions in a linear fashion. Very quickly becomes disorganized in thought. He reports no auditory or visual hallucinations he reports no delusional thought he is an impaired historian. He indicates his mood is fine he indicates he sleeping well appetite stable and energy is good." Hospital Course: Psychiatric: The patient was initiated on psychotropic medication Depakote for mood s tabilization, and Zyprexa as a mood stabilizer and for psychotic symptoms. Risperidone which was prior to admission psychiatric medication has been discontinued because as per patient report cause him severe ALLERGIC reaction "spasm of his throat". Medication doses has been adjusted to optimize the stability of the psychiatric symptoms, and to avoid side effects. Patient tolerated the above medication/s very well, without side effects. Depakote dose was adjusted guided by the Depakote level and last level obtained and the day of discharge was 67 at current dose of 1500 mg daily. The patient was admitted for a safe and supportive environment. A psychiatric, medical, and psychosocial evaluations were done on admission. The patient's hospital stay is unremarkable. Patient did not exhibit any aggression towards self or others during this hospitalization, and there was no requirements for emergency medications or restraints. The patient attended groups to obtain coping skills and process stress. Patient was compliant with his medications. Patient got along with other peers and with staff. The objective signs of mood instability and psychotic symptoms have been improved. Patient denies any suicidal ideation, not made any hopelessness/helplessness statements for more than 3 days prior to discharge. Maximum hospitalization benefit was reached and subsequently discharge was planned, and patient is appropriate to continue treatment on an outpatient basis. On the day of discharge the patient was able to create an appropriate safety plan and denies any side effect of medications. Medical: Patient was educated about smoking cessation and he declined offered prescription for nicotine replacement therapy and the time of discharge. Assessment: Assessment at the day of discharge: The patient was seen at the day of discharge. Patient denies any sleep or appetite disturbances, denies feeling hopeless, worthless or helpless. Also, patient denies any other depressive or manic symptoms. Patient denies any psychotic symptoms. Patient denies suicidal or homicidal thoughts, intention or plans. Nurses and therapist reported patient is psychiatrically stable, and agreed to discharge plan. Mental status examination on discharge: Appearance: The patient appears stated age, adequately groomed and dressed, no specific features. Gait/posture: Normal gait, Normal arm swinging: No abnormal movements. Attitude and behavior: engaged, cooperative, eye contact. Motor activity: Normal psychomotor activity Speech: Normal rate, tone. Mood: "good" Affect: Constricted Thought form: goal-directed, linear, coherent. Thought content: Non-delusional, denies suicidal thoughts, denies homicidal thoughts, denies intentions or plans. Perception: Denies any auditory or visual hallucinations Attention: No impairment. Patient was able to repeat serial 5. Orientation: Patient patient was fully oriented to time place person and situation. Insight: Patient has fair insight about his psychiatric disorder. Judgment: Patient has fair judgment about his psychiatric treatment. Discharge diagnoses: Schizo-affective disorder bipolar type Health Concerns: Activity: As tolerated Diet: Regular Special Instructions: Labs to be completed after discharge: As clinically indicated by His outpatient psychiatrist and PCP. Pt is currently on Zyprexa and he was educated about risk of metabolic syndrome and need to continue monitoring weight, and continue monitoring lipid panel and Hb A1C. Continue monitor Depakote level, liver function test, and CBC as clinically indicated to rule out possible toxicity from Depakote. Discharge checklist for suicide and violence to determine stability: Safety plan was discussed with the patient. Patient denies any current suicidal/ homicidal or violent ideation/plan/ intent. Patient has ability to address stressors/emotions. Patient understands and is comfortable with discharge plan. Outpatient appointments is near [facility] Emergency number (911, crisis number) provided to the patient. Avoid the use of street drugs and alcohol. Take all medications as prescribed. When you are in need of refills please contact your medical provider and/or outpatient psychiatrist to have this done. Please go to scheduled outpatient appointment for aftercare. If symptoms return or become worse call the crisis line at and/or go to the nearest emergency room for an evaluation. Pertinent Studies: Laboratory Tests Range/Units 07/06/19 07/07/19 07/07/19 20:00 08:35 08:35 WBC (3.8-10.6) k/uL 6.8 RBC (4.30-5.90) m/uL 5.32 Hgb (13.0-17.5) gm/dL 16.0 Hct (39.0-53.0) % 48.2 MCV (80.0-100.0) fL 90.5 MCH (25.0-35.0) pg 30.1 MCHC (31.0-37.0) g/dL 33.2 RDW (11.5-15.5) % 12.7 Plt Count (150-450) k/uL 335 Neutrophils % % 57 Lymphocytes % % 29 Monocytes % % 7 Eosinophils % % 5 Basophils % % 0 Neutrophils # (1.3-7.7) k/uL 3.8 Lymphocytes # (1.0-4.8) k/uL 1.9 Monocytes # (0-1.0) k/uL 0.5 Eosinophils # (0-0.7) k/uL 0.3 Basophils # (0-0.2) k/uL 0.0 Sodium (137-145) mmol/L Potassium (3.5-5.1) mmol/L Chloride (98-107) mmol/L Carbon Dioxide (22-30) mmol/L Anion Gap mmol/L BUN (9-20) mg/dL Creatinine (0.66-1.25) mg/dL Est GFR (CKD-EPI)AfAm (>60 ml/min/1.73 sqM) Est GFR (CKD-EPI)NonAf (>60 ml/min/1.73 sqM) Glucose (74-99) mg/dL Estimated Ave Glu mg/dL 117 Hemoglobin A1c (4.0-6.0) % 5.7 Calcium (8.4-10.2) mg/dL Total Bilirubin (0.2-1.3) mg/dL AST (17-59) U/L ALT (21-72) U/L Alkaline Phosphatase (38-126) U/L Total Protein (6.3-8.2) g/dL Albumin (3.5-5.0) g/dL Triglycerides (<150) mg/dL Cholesterol (<200) mg/dL LDL Cholesterol, Calc (0-99) mg/dL HDL Cholesterol (40-60) mg/dL TSH (0.465-4.680) mIU/L Urine Opiates Screen (NotDetected) Not Detected Ur Oxycodone Screen (NotDetected) Not Detected Urine Methadone Screen (NotDetected) Not Detected Ur Propoxyphene Screen (NotDetected) Not Detected Ur Barbiturates Screen (NotDetected) Not Detected Valproic Acid ug/mL U Tricyclic Antidepress (NotDetected) Not Detected Ur Phencyclidine Scrn (NotDetected) Not Detected Ur Amphetamines Screen (NotDetected) Not Detected U Methamphetamines Scrn (NotDetected) Not Detected U Benzodiazepines Scrn (NotDetected) Not Detected Urine Cocaine Screen (NotDetected) Not Detected U Marijuana (THC) Screen (NotDetected) Not Detected Range/Units 07/07/19 07/24/19 07/27/19 08:35 09:40 07:30 WBC (3.8-10.6) k/uL RBC (4.30-5.90) m/uL Hgb (13.0-17.5) gm/dL Hct (39.0-53.0) % MCV (80.0-100.0) fL MCH (25.0-35.0) pg MCHC (31.0-37.0) g/dL RDW (11.5-15.5) % Plt Count (150-450) k/uL Neutrophils % % Lymphocytes % % Monocytes % % Eosinophils % % Basophils % % Neutrophils # (1.3-7.7) k/uL Lymphocytes # (1.0-4.8) k/uL Monocytes # (0-1.0) k/uL Eosinophils # (0-0.7) k/uL Basophils # (0-0.2) k/uL Sodium (137-145) mmol/L 141 Potassium (3.5-5.1) mmol/L 4.6 Chloride (98-107) mmol/L 104 Carbon Dioxide (22-30) mmol/L 28 Anion Gap mmol/L 9 BUN (9-20) mg/dL 15 Creatinine (0.66-1.25) mg/dL 0.96 Est GFR (CKD-EPI)AfAm (>60 ml/min/1.73 sqM) >90 Est GFR (CKD-EPI)NonAf (>60 ml/min/1.73 sqM) >90 Glucose (74-99) mg/dL [address] Glu mg/dL Hemoglobin A1c (4.0-6.0) % Calcium (8.4-10.2) mg/dL 9.9 Total Bilirubin (0.2-1.3) mg/dL 0.8 AST (17-59) U/L 24 22 ALT (21-72) U/L 39 25 Alkaline Phosphatase (38-126) U/L 67 Total Protein (6.3-8.2) g/dL 7.3 Albumin (3.5-5.0) g/dL 4.5 Triglycerides (<150) mg/dL 151 H Cholesterol (<200) mg/dL 236 H LDL Cholesterol, Calc (0-99) mg/dL 160 H HDL Cholesterol (40-60) mg/dL 46 TSH (0.465-4.680) mIU/L 1.660 Urine Opiates Screen (NotDetected) Ur Oxycodone Screen (NotDetected) Urine Methadone Screen (NotDetected) Ur Propoxyphene Screen (NotDetected) Ur Barbiturates Screen (NotDetected) Valproic Acid ug/mL 38.9 43.9 U Tricyclic Antidepress (NotDetected) Ur Phencyclidine Scrn (NotDetected) Ur Amphetamines Screen (NotDetected) U Methamphetamines Scrn (NotDetected) U Benzodiazepines Scrn (NotDetected) Urine Cocaine Screen (NotDetected) U Marijuana (THC) Screen (NotDetected) Range/Units 07/30/19 08:54 WBC (3.8-10.6) k/uL RBC (4.30-5.90) m/uL Hgb (13.0-17.5) gm/dL Hct (39.0-53.0) % MCV (80.0-100.0) fL MCH (25.0-35.0) pg MCHC (31.0-37.0) g/dL RDW (11.5-15.5) % Plt Count (150-450) k/uL Neutrophils % % Lymphocytes % % Monocytes % % Eosinophils % % Basophils % % Neutrophils # (1.3-7.7) k/uL Lymphocytes # (1.0-4.8) k/uL Monocytes # (0-1.0) k/uL Eosinophils # (0-0.7) k/uL Basophils # (0-0.2) k/uL Sodium (137-145) mmol/L Potassium (3.5-5.1) mmol/L Chloride (98-107) mmol/L Carbon Dioxide (22-30) mmol/L Anion Gap mmol/L BUN (9-20) mg/dL Creatinine (0.66-1.25) mg/dL Est GFR (CKD-EPI)AfAm (>60 ml/min/1.73 sqM) Est GFR (CKD-EPI)NonAf (>60 ml/min/1.73 sqM) Glucose (74-99) mg/dL Estimated Ave Glu mg/dL Hemoglobin A1c (4.0-6.0) % Calcium (8.4-10.2) mg/dL Total Bilirubin (0.2-1.3) mg/dL AST (17-59) U/L ALT (21-72) U/L Alkaline Phosphatase (38-126) U/L Total Protein (6.3-8.2) g/dL Albumin (3.5-5.0) g/dL Triglycerides (<150) mg/dL Cholesterol (<200) mg/dL LDL Cholesterol, Calc (0-99) mg/dL HDL Cholesterol (40-60) mg/dL TSH (0.465-4.680) mIU/L Urine Opiates Screen (NotDetected) Ur Oxycodone Screen (NotDetected) Urine Methadone Screen (NotDetected) Ur Propoxyphene Screen (NotDetected) Ur Barbiturates Screen (NotDetected) Valproic Acid ug/mL 67.1 U Tricyclic Antidepress (NotDetected) Ur Phencyclidine Scrn (NotDetected) Ur Amphetamines Screen (NotDetected) U Methamphetamines Scrn (NotDetected) U Benzodiazepines Scrn (NotDetected) Urine Cocaine Screen (NotDetected) U Marijuana (THC) Screen (NotDetected) Procedures: Plan: Patient will continue follow-up at-. As per discharge plan Continue the following medications: As per discharge plan Patient Condition at Discharge: Stable Patient will be discharge to [facility] Patient Condition at Discharge: Stable Plan - Discharge Summary Discharge Rx Participant: No New Discharge Prescriptions: New Divalproex ER [Depakote ER] 1,250 mg PO HS 30 Days tab.er.24h Divalproex ER [Depakote ER] 250 mg PO DAILY 30 Days tab.er.24h OLANZapine [ZyPREXA] 10 mg PO BID 30 Days tab Discontinued risperiDONE 1 mg PO HS Discharge Medication List Divalproex ER [Depakote ER] 1,250 mg PO HS 30 Days tab.er.24h 07/30/19 [Rx] Divalproex ER [Depakote ER] 250 mg PO DAILY 30 Days tab.er.24h 07/30/19 [Rx] OLANZapine [ZyPREXA] 10 mg PO BID 30 Days tab 07/30/19 [Rx] Follow up Appointment(s)/Referral(s): None,Stated [Primary Care Provider] - 1-2 days Patient Instructions/Handouts: Bipolar Disorder (DC), Depression (DC) Activity/Diet/Wound Care/Special Instructions: Activity and diet as tolerated. Avoid the use of street drugs and alcohol. Take all medications as prescribed. When you are in need of refills on your medications please contact your medical provider and/or outpatient psychiatrist to have this done. Please go to scheduled outpatient appointment for aftercare treatment. If symptoms return or become worse, call the crisis line at and/or go to the nearest emergency room for evaluation. Discharge Disposition: HOME SELF-CARE
== END 2019-07-30 15:36 | DRG 885 ==
LOC: EC 16:08 → 3MHU 21:20
PROVIDERS: ADMIT Psychiatry & Neurology Psychiatry; ATTEND Psychiatry & Neurology Psychiatry
DX: F25.0 Schizoaffective disorder, bipolar type (principal); E11.9 Type 2 diabetes mellitus without complications; F41.9 Anxiety disorder, unspecified; G89.29 Other chronic pain; M54.9 Dorsalgia, unspecified; E78.5 Hyperlipidemia, unspecified; I10 Essential (primary) hypertension; M19.90 Unspecified osteoarthritis, unspecified site; E66.3 Overweight; Z68.35 Body mass index [BMI] 35.0-35.9, adult; Z71.3 Dietary counseling and surveillance; F17.290 Nicotine dependence, other tobacco product, uncomplicated; Z71.6 Tobacco abuse counseling; Z79.899 Other long term (current) drug therapy; Z87.448 Personal history of other diseases of urinary system; Z87.891 Personal history of nicotine dependence; Z86.69 Personal history of other diseases of the nervous system and sense organs; Z88.5 Allergy status to narcotic agent; Z88.0 Allergy status to penicillin; Z91.011 Allergy to milk products
CPT/HCPCS: 80053; 80061; 80164; 80306; 82075; 83036; 84443; 84450; 84460; 85025; 99285

== ENCOUNTER 2022-06-17 18:37 | Emergency (ER) | payer MEDICARE ==
[2022-06-17 18:44] VITALS: PULSE 86; TEMP 98
[2022-06-17] MEDS ORDERED: MORPHINE SULFATE 4 MG/ML SYRINGE IM STA (19:06)
--- NOTE | 2022-06-17 19:07 | ED ---
Extremity Problem HPI - General Chief complaint: Extremity Problem,Nontraumatic Stated complaint: rt leg pain Time Seen by Provider: 06/17/22 18:56 Source: patient, RN notes reviewed Mode of arrival: ambulatory Limitations: no limitations - History of Present Illness Initial comments: Patient is a 47-year-old male who appears older than his stated age presenting to the emergency room with complaints of right leg pain due to previous work comp crush injury many years ago. He reports no changes in his chronic pain however his pain intensity has increased recently with sciatica down his right leg. He is not currently taking any medications as he recently moved to the area and is currently homeless and not establish with local providers. He states that he has an appointment with a local primary care provider in July and is hopeful for referral to specialists after that appointment. He has previously had a spinal stimulator for his chronic pain but does not have the stimulator in place any longer. He denies any new trauma, new range of motion impairment, bladder incontinence not related to inability to get to the restroom in time, bowel incontinence, saddle paresthesia or other reflexes symptoms for cauda equina. In addition to his chronic back and leg pain he has a past medical history significant for diabetes, hypertension, anxiety, and depression. - Related Data Previous Rx's Medication Instructions Recorded Divalproex ER [Depakote ER] 1,250 mg PO HS 30 Days tab.er.24h 07/30/19 Divalproex ER [Depakote ER] 250 mg PO DAILY 30 Days tab.er.24h 07/30/19 OLANZapine [ZyPREXA] 10 mg PO BID 30 Days tab 07/30/19 amLODIPine [Norvasc] 5 mg PO DAILY 30 Days #30 tab 06/17/22 Allergies Allergy/AdvReac Type Severity Reaction Status Date / Time dicloxacillin Allergy Unknown Verified 06/17/22 18:44 lactase [From Dairy [employer]] Allergy Unknown Verified 06/17/22 18:44 oxycodone Allergy Unknown Verified 06/17/22 18:44 risperidone Allergy Anaphylaxis Verified 06/17/22 18:44 Review of Systems ROS Statement: Those systems with pertinent positive or pertinent negative responses have been documented in the HPI. ROS Other: All systems not noted in ROS Statement are negative. Past Medical History Past Medical History: Diabetes Mellitus, Hyperlipidemia, Hypertension, Osteoarthritis (OA), Renal Disease Additional Past Medical History / Comment(s): Patient denies any history of GA CVA PE DVT asthma History of Any Multi-Drug Resistant Organisms: None Reported Past Surgical History: Back Surgery Additional Past Surgical History / Comment(s): Back surgery x 2, Surgery right foot. Past Anesthesia/Blood Transfusion Reactions: No Reported Reaction Past Psychological History: Anxiety, Depression Smoking Status: Never smoker Past Alcohol Use History: None Reported, Occasional Past Drug Use History: None Reported General Exam General appearance: alert, in no apparent distress Head exam: Present: atraumatic, normocephalic, normal inspection Eye exam: Present: normal appearance, PERRL, EOMI. Absent: scleral icterus, conjunctival injection, periorbital swelling ENT exam: Present: normal exam, mucous membranes moist Neck exam: Present: normal inspection, full ROM Respiratory exam: Absent: respiratory distress, accessory muscle use Cardiovascular Exam: Present: regular rate GI/Abdominal exam: Absent: distended Rectal exam: Present: deferred Right Lower Leg exam: Present: tenderness. Absent: swelling Ankle exam: Present: tenderness. Absent: swelling Neurovascular tendon exam: Present: no vascular compromise Gait: observed and limited by pain Back exam: Present: normal inspection, tenderness Neurological exam: Present: alert, oriented X3, CN II-XII intact Psychiatric exam: Present: normal affect, normal mood Skin exam: Present: other (Bilateral lower extremity is mild discoloration) Course Vital Signs 06/17/22 06/17/22 18:42 20:12 Temperature 98 F Pulse Rate 86 86 Respiratory 20 18 Rate Blood Pressure 199/100 183/88 O2 Sat by Pulse 99 100 Oximetry Medical Decision Making - Medical Decision Making 47-year-old male presenting with complaints of right lower extremity pain secondary to trauma in the past. No new injury. No changes in range of motion. No changes in swelling or pain characteristics. No indication for diagnostic imaging or laboratory studies. Will give IM morphine and monitor response. Pain responded well to IM morphine with improved ability to ambulate with cane. Blood pressure remains elevated despite pain medication intervention. Patient with blood pressure medications at home is currently not able to obtain blood pressure medications at home is [facility]. Will give 5 mg now and send prescription to pharmacy. Will discharge home in stable condition with Tylenol 3 starter pack and encourage follow-up with already scheduled primary care provider. Case discussed with Dr. Ventura. Disposition Clinical Impression: Chronic pain of right lower extremity, Hypertension Disposition: HOME SELF-CARE Condition: Stable Instructions (If sedation given, give patient instructions): Chronic Pain (ED) Additional Instructions: Please utilize Tylenol 3 starter pack as needed for pain or ibuprofen [id number]. Do not utilize Tylenol [id number] while utilizing Tylenol 3 starter pack. Please obtain and take Norvasc daily for high blood pressure. If able please monitor blood pressure daily. Please follow-up with your primary care provider as scheduled. Please return to the Emergency Department if symptoms worsen or any other concerns. Prescriptions: amLODIPine [Norvasc] 5 mg PO DAILY 30 Days #30 tab Is patient prescribed a controlled substance at d/c from ED?: No Referrals: None,Stated [Primary Care Provider] - 1-2 days Time of Disposition: 19:54
[2022-06-17] MEDS ORDERED: ACET/COD 300 MG/30 MG STARTER PACK 6 TAB BTL PO STA (19:52)
[2022-06-17 20:13] VITALS: BP 183/88; RESP 18
[2022-06-17] MEDS ORDERED: amLODIPine 5 MG TAB PO STA (20:15)
== END 2022-06-17 20:29 | disposition home or self-care (01) ==
LOC: EC 18:37
DX: M79.661 Pain in right lower leg (principal); E11.9 Type 2 diabetes mellitus without complications; E78.5 Hyperlipidemia, unspecified; M19.90 Unspecified osteoarthritis, unspecified site; I12.0 Hypertensive chronic kidney disease with stage 5 chronic kidney disease or end stage renal disease; N18.6 End stage renal disease; J45.909 Unspecified asthma, uncomplicated; Z79.899 Other long term (current) drug therapy; Z88.0 Allergy status to penicillin; Z88.5 Allergy status to narcotic agent; Z88.8 Allergy status to other drugs, medicaments and biological substances
CPT/HCPCS: 99283; 96372; J2270